=== PATIENT | female | born 1955 | race Caucasian/White ===

== ENCOUNTER → 2020-04-27 | Outpatient (REF) | payer BC | LOC: M LAB REF 16:52 | PROVIDERS: ATTEND Dermatology | DX: D23.5 Other benign neoplasm of skin of trunk (principal) ==

== ENCOUNTER → 2022-08-01 | Outpatient (CLI) | payer MEDICARE, BC | LOC: M WHC 13:47 | PROVIDERS: ATTEND Nurse Practitioner Family | DX: Z12.4 Encounter for screening for malignant neoplasm of cervix (principal) | CPT/HCPCS: 87624; G0123 ==

== ENCOUNTER → 2024-08-10 | Outpatient (REF) | payer MEDICARE, OTHER | LOC: M SFHCWAGY 15:08 | PROVIDERS: ATTEND Nurse Practitioner Family | DX: Z12.4 Encounter for screening for malignant neoplasm of cervix (principal) | CPT/HCPCS: 87624; G0123 ==